=== PATIENT | male | born 1995 | race African-American/Black ===

== ENCOUNTER 2024-09-02 14:30 | Emergency (ER) | payer BC ==
[~2024-09-02] VITALS: Ht 180.3 cm; Wt 90.7 kg
[2024-09-02] MEDS ORDERED: ACET-2030 PO (15:03)
[2024-09-02] MEDS ORDERED: IBUP-1490 PO (15:03)
[2024-09-02] MEDS ORDERED: KETOROLAC TROMETHAMINE INJ 30 MG/ML VIAL ONE (15:39)
[2024-09-02] MEDS: KETOROLAC TROMETHAMINE INJ 30 MG/ML VIAL IM ONE (15:44)
[2024-09-02 17:47] VITALS: BP 120/82; TEMP 98.5; O2SAT 98
== END 2024-09-02 17:40 | disposition home or self-care (01) ==
LOC: ER 14:34
DX: M25.562 Pain in left knee (principal); W22.8XXA Striking against or struck by other objects, initial encounter; Y93.67 Activity, basketball; Y92.89 Other specified places as the place of occurrence of the external cause; Y99.8 Other external cause status
CPT/HCPCS: 29505; 73564; 96372; 99283; J1885